=== PATIENT | male | born 1985 | race Caucasian/White ===

== ENCOUNTER 2022-09-15 16:17 | Emergency (ER) | payer OTHER ==
[2022-09-15 16:21] VITALS: TEMP 98
[2022-09-15] MEDS ORDERED: CEPHALEXIN 500 MG CAP PO STA (19:54)
--- NOTE | 2022-09-15 19:58 | ED ---
Wound/Laceration HPI - General Chief Complaint: Wound/Laceration Stated Complaint: neck laceration Time Seen by Provider: 09/15/22 19:44 Source: patient Mode of arrival: ambulatory Limitations: no limitations - History of Present Illness Initial Comments: Patient is a 37-year-old male who presents with neck laceration. Patient was intoxicated after drinking alcohol and fell. He does not remember how he cut his neck. The injury occurred on Thursday, 6 days ago. He denies loss of consciousness and blood thinner use. Denies throat pain and trouble swallowing. No fever, chills, nausea, vomiting. Patient presented at [facility] for treatment and was sent to the emergency department for evaluation. - Related Data Previous Rx's Medication Instructions Recorded Cephalexin [Keflex] 500 mg PO Q6HR 5 Days #20 cap 09/15/22 Allergies Allergy/AdvReac Type Severity Reaction Status Date / Time No Known Allergies Allergy Verified 09/15/22 16:22 Review of Systems ROS Statement: Those systems with pertinent positive or pertinent negative responses have been documented in the HPI. ROS Other: All systems not noted in ROS Statement are negative. Past Medical History Past Medical History: No Reported History History of Any Multi-Drug Resistant Organisms: None Reported Past Surgical History: No Surgical Hx Reported Past Psychological History: No Psychological Hx Reported Smoking Status: Current every day smoker Past Alcohol Use History: Abuse, Daily, Heavy Past Drug Use History: None Reported General Exam Limitations: no limitations General appearance: alert, in no apparent distress Head exam: Present: atraumatic, normocephalic, normal inspection Eye exam: Present: normal appearance, PERRL, EOMI. Absent: scleral icterus, conjunctival injection, periorbital swelling Neck exam: Present: full ROM. Absent: normal inspection (5 by 1-2 cm wound with mild surroundin erythema and minimal purulent drainage. No fluctuance) Respiratory exam: Present: normal lung sounds bilaterally. Absent: respiratory distress, wheezes, rales, rhonchi, stridor Cardiovascular Exam: Present: regular rate, normal rhythm, normal heart sounds. Absent: systolic murmur, diastolic murmur, rubs, gallop, clicks Neurological exam: Present: alert, oriented X3, CN II-XII intact Psychiatric exam: Present: normal affect, normal mood Skin exam: Present: warm, dry, intact, normal color. Absent: rash Course Vital Signs 09/15/22 09/15/22 09/15/22 16:19 16:22 20:05 Temperature 98 F Pulse Rate 117 H 95 Respiratory 18 15 Rate Blood Pressure 160/109 133/74 O2 Sat by Pulse 100 99 Oximetry Medical Decision Making - Medical Decision Making This is a 37-year-old male presenting for evaluation of laceration. Laceration is out of time frame for closure. There is concern for infection of the wound. No systemic symptoms. Patient will be placed on Keflex. Return parameters discussed. Dr. Hood is my attending. Disposition Clinical Impression: Laceration, Infected wound Disposition: HOME SELF-CARE Condition: Good Additional Instructions: Take Keflex as directed. Please leave wound uncovered as this will help infection and wound heal properly. Return to the emergency department if you experience new, concerning, or worsening symptoms, including but not limited to, increased redness, swelling, or drainage of the wound, or fever/chills, vomiting. Prescriptions: Cephalexin [Keflex] 500 mg PO Q6HR 5 Days #20 cap Is patient prescribed a controlled substance at d/c from ED?: No Referrals: None,Stated [Primary Care Provider] - 1-2 days Time of Disposition: 19:58
[2022-09-15 20:06] VITALS: BP 133/74; PULSE 95; RESP 15
== END 2022-09-15 20:09 | disposition home or self-care (01) ==
LOC: EC 16:17
DX: S11.91XA Laceration without foreign body of unspecified part of neck, initial encounter (principal); L08.89 Other specified local infections of the skin and subcutaneous tissue; F17.200 Nicotine dependence, unspecified, uncomplicated; W18.30XA Fall on same level, unspecified, initial encounter
CPT/HCPCS: 99282